=== PATIENT | male | born 1970 | race Caucasian/White ===

== ENCOUNTER 2019-03-14 10:40 | Emergency (ER) | payer BC ==
[2019-03-14 11:00] VITALS: BP 127/72; PULSE 76
[2019-03-14] MEDS ORDERED: Colchicine 0.6 MG Tab PO ONE (11:17)
[2019-03-14] MEDS ORDERED: methylPREDNISolone Sodium Succinate 125 MG/2 ML SDV IM ONE (11:19)
--- NOTE | 2019-03-14 11:29 | EDM.PDOC ---
Scribed by Yudi Davenport 03/14/19 [id number] for Kyle Malcolm MD ED HPI GENERAL MEDICAL PROBLEM - General Chief Complaint: Lower Extremity Injury/Pain Stated Complaint: GOUT PAIN Time Seen by Provider: 03/14/19 11:04 Source of Information: Reports: Patient, RN, RN Notes Reviewed History Limitations: Reports: No Limitations - History of Present Illness INITIAL COMMENTS - FREE TEXT/NARRATIVE: Patient presents to ER by POv with complaint of bilateral foot pain which he relates to his gout. Pain is a 10/10. He ambulates with a slight limb. Onset: Gradual Duration: Getting Worse Location: Reports: Lower Extremity, Left, Lower Extremity, Right Quality: Reports: Ache Severity: Moderate Improves with: Reports: None Worsens with: Reports: None Associated Symptoms: Reports: No Other Symptoms Bilateral Feet Pain Score (Numeric/FACES): 10 - Related Data Allergies Allergy/AdvReac Type Severity Reaction Status Date / Time No Known Allergies Allergy Verified 03/14/19 11:01 Home Meds: Home Meds Multivitamin [Multivitamins] 1 each PO DAILY 03/14/19 [History] Past Medical History - Past Health History Medical/Surgical History: Denies Medical/Surgical History HEENT History: Reports: Impaired Vision Other HEENT History: wears glasses Cardiovascular History: Reports: None Respiratory History: Reports: None Gastrointestinal History: Reports: None Genitourinary History: Reports: None Musculoskeletal History: Reports: Gout Neurological History: Reports: None Psychiatric History: Reports: None Endocrine/Metabolic History: Reports: None Hematologic History: Reports: None Immunologic History: Reports: None Oncologic (Cancer) History: Reports: None Dermatologic History: Reports: None - Infectious Disease History Infectious Disease History: Reports: Chicken Pox - Past Surgical History Head Surgeries/Procedures: Reports: None Other Musculoskeletal Surgeries/Procedures:: broken arm and leg, cut finger off Social & Family History - Family History Family Medical History: Noncontributory - Caffeine Use Caffeine Use: Reports: Coffee, Soda - Living Situation & Occupation Living situation: Reports: , with Family Occupation: Employed Review of Systems - Review of Systems Review Of Systems: Comprehensive ROS is negative, except as noted in HPI. ED EXAM, GENERAL - Physical Exam Exam: See Below Exam Limited By: No Limitations General Appearance: Alert, WD/WN, No Apparent Distress Head: Atraumatic, Normocephalic Neck: Normal Inspection Respiratory/Chest: No Respiratory Distress, Lungs Clear Cardiovascular: Normal Peripheral Pulses, Regular Rate, Rhythm Back Exam: Normal Inspection Extremities: No Pedal Edema, Normal Capillary Refill, Joint Swelling (B/L 1st MTPJs), Redness (B/L 1st MTPJ and great toes with acute tenderness to light touch). No: Shawn's Sign, Leg Pain Neurological: Alert, Oriented Psychiatric: Normal Affect Skin Exam: Warm, Dry, Intact Course - Vital Signs Last Recorded V/S: Last Vital Signs Temp 97.8 F 03/14/19 10:56 Pulse 76 03/14/19 10:56 Resp 18 03/14/19 10:56 BP 127/72 03/14/19 10:56 Pulse Ox 99 03/14/19 10:56 - Orders/Labs/Meds Meds: Medications Discontinued Medications Generic Name Dose Route Start Last Admin Trade Name Kevq PRN Reason Stop Dose Admin Colchicine 1.2 mg 03/14/19 11:17 Colcrys PO 03/14/19 11:18 ONETIME ONE Methylprednisolone Sodium Succinate 125 mg 03/14/19 11:19 Solu-Medrol IM 03/14/19 11:20 ONETIME ONE Departure - Departure Time of Disposition: 11:24 Disposition: Home, Self-Care 01 Condition: Good Clinical Impression: Acute gout Qualifiers: Gout site: toe Gout etiology: unspecified cause Laterality: unspecified laterality Qualified Code(s): M10.9 - Gout, unspecified - Discharge Information *PRESCRIPTION DRUG MONITORING PROGRAM REVIEWED*: No *COPY OF PRESCRIPTION DRUG MONITORING REPORT IN PATIENT TINO: No Instructions: Gout, Low-Purine Eating Plan Forms: ED Department Discharge Additional Instructions: Rx: Prednisone 20mg *Take with meals. Rx: [place] (Hydrocodone APAP) 5mg/325mg *Do not drive while under the influence of this medication. Hot packs or soaks to joints affected by gout. Low purine diet. Restart the [place] supplement. Follow up in clinic if not improving as expected. I have read and agree with the documentation that has been completed regarding this visit. By signing this record, I attest that the documentation was completed in my physical presence and is an accurate record of the encounter.
== END 2019-03-14 11:40 | disposition home or self-care (01) ==
LOC: DL.ED 10:40
DX: M10.9 Gout, unspecified (principal)
CPT/HCPCS: 96372; 99283; A9270; J2930

== ENCOUNTER 2020-12-07 05:45 | Emergency (ER) | payer BC ==
[2020-12-07] MEDS ORDERED: methylPREDNISolone Sodium Succinate 125 MG/2 ML SDV IM ONE (06:01)
[2020-12-07] MEDS ORDERED: Colchicine 0.6 MG Tab PO ONE (06:01)
--- NOTE | 2020-12-07 06:01 | EDM.PDOC ---
ED HPI GENERAL MEDICAL PROBLEM - General Stated Complaint: GOUT Time Seen by Provider: 12/07/20 05:54 Source of Information: Reports: Patient, RN, RN Notes Reviewed History Limitations: Reports: No Limitations - History of Present Illness INITIAL COMMENTS - FREE TEXT/NARRATIVE: Guicho is a 50 y/o male with a history of gout who presents to the ED via personal vehicle with complaints of pain and redness to his bilateral MTP joints. The patient states he typically follows a low-purine diet and does not take medications for gout, however he drank two root beers yesterday which set him into flare. He characterizes the pain as a sharp burning which prevented him from sleep last night. He has taken one dose of ibuprofen 400mg which provided him mild alleviation in pain. He denies loss of motor or sensory function to the affected digits. Left Foot Pain Score (Numeric/FACES): 10 - Related Data Allergies Allergy/AdvReac Type Severity Reaction Status Date / Time No Known Allergies Allergy Verified 12/07/20 06:04 Home Meds: Home Meds Multivitamin [Multivitamins] 1 each PO DAILY 03/14/19 [History] Past Medical History - Past Health History Medical/Surgical History: Denies Medical/Surgical History HEENT History: Reports: Impaired Vision Other HEENT History: wears glasses Cardiovascular History: Reports: None Respiratory History: Reports: None Gastrointestinal History: Reports: None Genitourinary History: Reports: None Musculoskeletal History: Reports: Gout Neurological History: Reports: None Psychiatric History: Reports: None Endocrine/Metabolic History: Reports: None Hematologic History: Reports: None Immunologic History: Reports: None Oncologic (Cancer) History: Reports: None Dermatologic History: Reports: None - Infectious Disease History Infectious Disease History: Reports: Chicken Pox - Past Surgical History Head Surgeries/Procedures: Reports: None Other Musculoskeletal Surgeries/Procedures:: broken arm and leg, cut finger off Social & Family History - Family History Family Medical History: No Pertinent Family History - Caffeine Use Caffeine Use: Reports: Coffee, Soda - Living Situation & Occupation Living situation: Reports: , with Family Occupation: Employed ED ROS GENERAL - Review of Systems Review Of Systems: Comprehensive ROS is negative, except as noted in HPI. ED EXAM, GENERAL - Physical Exam Exam: See Below Exam Limited By: No Limitations General Appearance: Alert, Mild Distress (Pain to bilateral great toes) Eye Exam: Bilateral Eye: EOMI, Normal Inspection, PERRL (3mm) Ears: Normal External Exam, Hearing Grossly Normal Nose: Normal Inspection, Normal Mucosa, No Blood Throat/Mouth: Normal Inspection, Normal Oropharynx, Normal Voice, No Airway Compromise Head: Atraumatic, Normocephalic Neck: Normal Inspection, Supple, Non-Tender, Full Range of Motion Respiratory/Chest: No Respiratory Distress, Lungs Clear, Normal Breath Sounds Cardiovascular: Normal Peripheral Pulses, Regular Rate, Rhythm, No Edema, No Gallop, No JVD, No Murmur, No Rub Peripheral Pulses: 1+: Posterior Tibial (L), Posterior Tibial (R), 2+: Radial (L), Radial (R), Dorsalis Pedis (L), Dorsalis Pedis (R) GI/Abdominal: Normal Bowel Sounds, Soft, Non-Tender Extremities: Normal Range of Motion, No Pedal Edema, Normal Capillary Refill, Leg Pain (To bilateral MTP joint of 1st digits), Increased Warmth (To bilateral MTP joint of 1st digits), Redness (To bilateral MTP joint of 1st digits) Neurological: Alert, Oriented, CN II-XII Intact, Normal Cognition, No Motor/Sensory Deficits, Abnormal Gait (Limping gait) Psychiatric: Normal Affect, Normal Mood Skin Exam: Warm, Dry, Intact, Normal Color, No Rash. No: Cyanosis, Ecchymosis, Erythema, Jaundice, Mottled, Pallor, Petechiae Course - Vital Signs Last Recorded V/S: Last Vital Signs Temp 97.6 F 12/07/20 06:01 Pulse 77 12/07/20 06:41 Resp 18 12/07/20 06:41 BP 124/103 H 12/07/20 06:41 Pulse Ox 96 12/07/20 06:41 - Orders/Labs/Meds Meds: Medications Discontinued Medications Generic Name Dose Route Start Last Admin Trade Name Freq PRN Reason Stop Dose Admin Colchicine 1.2 mg 12/07/20 06:01 12/07/20 06:13 Colchicine 0.6 Mg Tab PO 12/07/20 06:02 1.2 mg ONETIME ONE Administration Methylprednisolone Sodium Succinate 125 mg 12/07/20 06:01 12/07/20 06:13 Methylprednisolone Sodium Succinate 125 Mg/2 Ml Sdv IM 12/07/20 06:02 125 mg ONETIME ONE Administration - Re-Assessments/Exams Free Text/Narrative Re-Assessment/Exam: 12/07/20 Solu-Medrol 125mg IM and Colchicine 1.2mg PO administered. Findings of examination reviewed with patient. Will treat acute flair with prednisone 20mg BID x7 days and Ultram 50mg q6h PRN. Discussed supportive cares for gout flair. Red flag signs and symptoms which would warrant reevaluation reviewed. Patient verbalized understanding and agreement with the plan of care. Departure - Departure Time of Disposition: 06:17 Disposition: Home, Self-Care 01 Condition: Fair Clinical Impression: Gout flare Qualifiers: Gout site: toe Gout etiology: unspecified cause Laterality: unspecified lateral ity Qualified Code(s): M10.9 - Gout, unspecified - Discharge Information *PRESCRIPTION DRUG MONITORING PROGRAM REVIEWED*: Not Applicable *COPY OF PRESCRIPTION DRUG MONITORING REPORT IN PATIENT TINO: Not Applicable Instructions: Low-Purine Eating Plan, Gout Forms: ED Department Discharge Additional Instructions: Rx: prednisone Rx: Ultram 1.) You may alternate heat and ice packs to the affected area, as pain persists. 2.) You may take acetaminophen (Tylenol) 650-1000m every six hours, as pain persist. 3.) Continue on low-purine eating diet. 4.) Follow up with primary care provider regarding today's visit.
[2020-12-07 06:43] VITALS: BP 124/103; PULSE 77
== END 2020-12-07 06:42 | disposition home or self-care (01) ==
LOC: DL.ED 05:45
DX: M10.9 Gout, unspecified (principal)
CPT/HCPCS: 96372; 99283; A9270; J2930

== ENCOUNTER 2022-10-29 21:29 | Emergency (ER) | payer BC ==
[2022-10-29 22:03] VITALS: BP 129/77; PULSE 81
[2022-10-29] MEDS ORDERED: Cephalexin 500 MG Cap PO ONE (22:41)
[2022-10-29] MEDS ORDERED: Diphtheria,Pertussis(Acell),Tetanus Vaccine 0.5 ML Syringe IM ONE (22:41)
[2022-10-29] MEDS ORDERED: Lidocaine 1% 5 ML VIAL INJECT ONE (23:50)
[2022-10-30] MEDS ORDERED: Cephalexin 500 MG Cap PO ONE (00:40)
[2022-10-30] MEDS ORDERED: Acetaminophen/oxyCODONE 325-5 MG Tab PO ONE (00:40)
== END 2022-10-30 01:05 | disposition home or self-care (01) ==
LOC: DL.ED 21:29
DX: S68.622A Partial traumatic transphalangeal amputation of right middle finger, initial encounter (principal); E03.9 Hypothyroidism, unspecified; Z23 Encounter for immunization; W26.8XXA Contact with other sharp object(s), not elsewhere classified, initial encounter; Y92.009 Unspecified place in unspecified non-institutional (private) residence as the place of occurrence of the external cause
CPT/HCPCS: 12002; 73140; 90471; 90715; 99283; A9270; 99282; J3490

== ENCOUNTER 2023-07-01 06:31 | Emergency (ER) | payer BC ==
[2023-07-01] MEDS: Sodium Chloride 0.9% 10 ML Syringe FLUSH PRN (07:02)
[2023-07-01] MEDS: Sodium Chloride 0.9% 1,000 ML IV ONE ×2 (07:03→07:51)
[2023-07-01 07:13] LABS: BASOPHILS PERCENT AUTO 0.4 % (0.0-1.0); EOSINOPHILS PERCENT AUTO 0.4 % (1.0-3.0); HEMOGLOBIN 15.6 g/dL (14.0-18.0); LYMPHOCYTES PERCENT AUTO 13.6 % (20.5-50.1); MEAN CORPUSCULAR HEMOGLOBIN 30.5 pg (27.0-34.0); MEAN CORPUSCULAR HGB CONC 33.9 g/dL (33.0-35.0); MEAN CORPUSCULAR VOLUME 89.8 fL (80-100); MONOCYTES PERCENT AUTO 13.7 % (2-8); NEUTROPHILS PERCENT AUTO 71.9 % (42.2-75.2); PLATELET COUNT,PLT 213 10^3/uL (150-450); RED BLOOD CELL COUNT 5.12 10^6/uL (4.6-6.2); WHITE BLOOD CELL COUNT,WBC 5.7 10^3/uL (5.0-10.0)
[2023-07-01 07:37] LABS: A/G RATIO 1.3; ALANINE AMINOTRANSFERASE,ALT 42 U/L (16-63); ALKALINE PHOSPHATASE 74 U/L (46-116); ANION GAP 13.2 mEq/L (7-13); ASPARTATE AMNIOTRANSFERASE,AST 21 U/L (15-37); BILIRUBIN TOTAL 0.6 mg/dL (0.2-1.0); BLOOD UREA NITROGEN,BUN 19 mg/dL (7-18); BUN/CREATININE RATIO 15.7 (No establ ref range); CALCIUM 8.6 mg/dL (8.5-10.1); CARBON DIOXIDE,CO2 30 mmol/L (21-32); CHLORIDE,CL 101 mmol/L (98-107); CREATININE 1.21 mg/dL (0.70-1.30); EST CRCL DRUG DOSING (CG) 69.09 mL/min; ESTIMATED GFR 72 mL/min (>=60); GLUCOSE RANDOM 117 mg/dL (70-99); MAGNESIUM 1.8 mg/dL (1.8-2.4); POTASSIUM,K 4.2 mmol/L (3.5-5.1); SODIUM,NA 140 mmol/L (136-145)
[2023-07-01 07:58] LABS: APPEARANCE,URINE CLEAR (CLEAR); BILIRUBIN,URINE NEGATIVE (NEGATIVE); COLOR,URINE YELLOW (YELLOW); GLUCOSE,URINE NEGATIVE (NEGATIVE); KETONES,URINE 40 (NEGATIVE); LEUKOCYTE ESTERASE,URINE NEGATIVE (NEGATIVE); NITRITE,URINE NEGATIVE (NEGATIVE); OCCULT BLOOD,URINE NEGATIVE (NEGATIVE); PH,URINE 6.5 (5.0-9.0); PROTEIN,URINE NEGATIVE (NEGATIVE); UROBILINOGEN,URINE 0.2 mg/dL (0.2-1.0)
[2023-07-01 08:17] VITALS: BP 117/71; PULSE 85
== END 2023-07-01 08:22 | disposition home or self-care (01) ==
LOC: DL.ED 06:31
DX: E86.0 Dehydration (principal); A08.4 Viral intestinal infection, unspecified; E03.9 Hypothyroidism, unspecified; Z79.899 Other long term (current) drug therapy
CPT/HCPCS: 36415; 71046; 80053; 81003; 83735; 84145; 84443; 84484; 85025; 96360; 99285-25; J3490; J7030

== ENCOUNTER 2023-07-02 11:39 | Emergency (ER) | payer BC ==
[2023-07-02 12:01] VITALS: BP 124/73; PULSE 98
[2023-07-02] MEDS: Ibuprofen 800 MG Tab PO ONE (12:10)
[2023-07-02 12:47] LABS: CORONAVIRUS COVID-19 NAA NEGATIVE (NEGATIVE); INFLUENZA A NAA NEGATIVE (NEGATIVE); INFLUENZA B NAA NEGATIVE (NEGATIVE); RESPIRATORY SYNCYTIAL VIR NAA NEGATIVE (NEGATIVE)
[2023-07-02 13:19] LABS: APPEARANCE,URINE CLEAR (CLEAR); BILIRUBIN,URINE NEGATIVE (NEGATIVE); GLUCOSE,URINE NEGATIVE (NEGATIVE); KETONES,URINE NEGATIVE (NEGATIVE); LEUKOCYTE ESTERASE,URINE NEGATIVE (NEGATIVE); NITRITE,URINE NEGATIVE (NEGATIVE); OCCULT BLOOD,URINE NEGATIVE (NEGATIVE); PROTEIN,URINE TRACE (NEGATIVE); UROBILINOGEN,URINE 0.2 mg/dL (0.2-1.0)
[2023-07-02 13:22] LABS: COLOR,URINE YELLOW (YELLOW)
[2023-07-02 13:29] LABS: HEMATOCRIT 41.2 % (40.0-54.0); HEMOGLOBIN 14.1 g/dL (14.0-18.0); MEAN CORPUSCULAR HEMOGLOBIN 30.8 pg (27.0-34.0); MEAN CORPUSCULAR HGB CONC 34.2 g/dL (33.0-35.0); NEUTROPHILS PERCENT AUTO 72.5 % (42.2-75.2); PLATELET COUNT,PLT 170 10^3/uL (150-450); RED BLOOD CELL COUNT 4.58 10^6/uL (4.6-6.2)
[2023-07-02 13:30] LABS: BASOPHILS PERCENT AUTO 0.3 % (0.0-1.0); EOSINOPHILS PERCENT AUTO 0.3 % (1.0-3.0); LYMPHOCYTES PERCENT AUTO 15.8 % (20.5-50.1); MONOCYTES PERCENT AUTO 11.1 % (2-8)
[2023-07-02 13:32] LABS: BACTERIA,URINE RARE /HPF (0-FEW/HPF); EPITHELIAL CELLS,URINE RARE /HPF (NOT SEEN); MUCUS,URINE OCCASIONAL /LPF (NOT SEEN); RBC,URINE NOT SEEN /HPF (0-5); WBC,URINE NOT SEEN /HPF (0-5/HPF)
== END 2023-07-02 14:45 | disposition home or self-care (01) ==
LOC: DL.ED 11:39
DX: D72.821 Monocytosis (symptomatic) (principal); E03.9 Hypothyroidism, unspecified; Z79.899 Other long term (current) drug therapy
CPT/HCPCS: 0241U; 36415; 81001; 85025; 87081; 87430; 99283; A9270-GY

== ENCOUNTER 2023-07-04 12:35 | Emergency (ER) | payer BC ==
[2023-07-04 12:50] VITALS: BP 114/66; PULSE 108
[2023-07-04] MEDS: Acetaminophen 325 MG Tab PO ONE (13:18)
[2023-07-04 13:34] LABS: HEMATOCRIT 42.1 % (40.0-54.0); HEMOGLOBIN 14.1 g/dL (14.0-18.0); MEAN CORPUSCULAR HEMOGLOBIN 30.1 pg (27.0-34.0); MEAN CORPUSCULAR HGB CONC 33.5 g/dL (33.0-35.0); PLATELET COUNT,PLT 165 10^3/uL (150-450); RED BLOOD CELL COUNT 4.68 10^6/uL (4.6-6.2); WHITE BLOOD CELL COUNT,WBC 2.4 10^3/uL (5.0-10.0)
[2023-07-04 13:39] LABS: BASOPHILS PERCENT AUTO 0.8 % (0.0-1.0); EOSINOPHILS PERCENT AUTO 0.8 % (1.0-3.0); LYMPHOCYTES PERCENT AUTO 33.3 % (20.5-50.1); MONOCYTES PERCENT AUTO 16.5 % (2-8); NEUTROPHILS PERCENT AUTO 48.6 % (42.2-75.2)
[2023-07-04 13:52] LABS: APPEARANCE,URINE CLEAR (CLEAR); BILIRUBIN,URINE NEGATIVE (NEGATIVE); COLOR,URINE DARK YELLOW (YELLOW); GLUCOSE,URINE NEGATIVE (NEGATIVE); KETONES,URINE TRACE (NEGATIVE); LEUKOCYTE ESTERASE,URINE NEGATIVE (NEGATIVE); NITRITE,URINE NEGATIVE (NEGATIVE); OCCULT BLOOD,URINE TRACE-INTACT (NEGATIVE); PROTEIN,URINE 30 (NEGATIVE)
[2023-07-04 13:57] LABS: A/G RATIO 1.2; ALANINE AMINOTRANSFERASE,ALT 215 U/L (16-63); ALBUMIN 3.5 g/dL (3.4-5.0); ALKALINE PHOSPHATASE 154 U/L (46-116); ANION GAP 9.9 mEq/L (7-13); ASPARTATE AMNIOTRANSFERASE,AST 118 U/L (15-37); BILIRUBIN TOTAL 0.5 mg/dL (0.2-1.0); BLOOD UREA NITROGEN,BUN 18 mg/dL (7-18); CALCIUM 8.6 mg/dL (8.5-10.1); CARBON DIOXIDE,CO2 30 mmol/L (21-32); CHLORIDE,CL 101 mmol/L (98-107); EST CRCL DRUG DOSING (CG) 69.67 mL/min; GLUCOSE RANDOM 109 mg/dL (70-99); POTASSIUM,K 3.9 mmol/L (3.5-5.1); PROTEIN TOTAL,TP 6.4 g/dL (6.4-8.2); SODIUM,NA 137 mmol/L (136-145)
[2023-07-04 13:58] LABS: LACTIC ACID 0.9 mmol/L (0.4-2.0)
[2023-07-04 14:02] LABS: ESTIMATED GFR 73 mL/min (>=60)
[2023-07-04 14:05] LABS: MONONUCLEOSIS SCREEN NEGATIVE
[2023-07-04 14:09] LABS: BACTERIA,URINE FEW /HPF (0-FEW/HPF); EPITHELIAL CELLS,URINE RARE /HPF (NOT SEEN); MUCUS,URINE FEW /LPF (NOT SEEN); RBC,URINE 0-5 /HPF (0-5); WBC,URINE 0-5 /HPF (0-5/HPF)
[2023-07-04 14:23] LABS: BAND PERCENT MAN 10 %; BASOPHILS PERCENT MAN 1; EOSINOPHILS PERCENT MAN 2 % (1-3); LYMPHOCYTES PERCENT MAN 29 % (20-50); MONOCYTES PERCENT MAN 16 % (2-8)
[2023-07-04 14:24] LABS: ATYPICAL LYMPHOCYTES FEW; PLATELET COUNT ESTIMATE ADEQUATE
[2023-07-04 14:28] LABS: SEG NEUTROPHILS PERCENT MAN 42 % (42-75)
== END 2023-07-04 15:19 | disposition home or self-care (01) ==
LOC: DL.ED 12:35
DX: R07.89 Other chest pain (principal); R05.9 Cough, unspecified; R65.10 Systemic inflammatory response syndrome (SIRS) of non-infectious origin without acute organ dysfunction; E03.9 Hypothyroidism, unspecified; Z79.899 Other long term (current) drug therapy
CPT/HCPCS: 36415; 71046; 80053; 81001; 83605; 84145; 84484; 85025; 86308; 87040; 93005; 99285; A9270; 93010; 99284